=== PATIENT | female | born 1995 | race Caucasian/White ===

== ENCOUNTER 2016-09-02 14:30 | Outpatient (CLI) | payer MEDICAID | END 2016-09-02 14:31 | disposition home or self-care (01) | DX: Z34.83 Encounter for supervision of other normal pregnancy, third trimester (principal) ==

== ENCOUNTER 2016-09-12 18:29 | Outpatient (CLI) | payer MEDICAID | END 2016-09-12 20:05 | disposition home or self-care (01) | DX: Z34.03 Encounter for supervision of normal first pregnancy, third trimester (principal) ==

== ENCOUNTER 2016-09-17 11:22 | Outpatient (CLI) | payer MEDICAID | END 2016-09-17 11:23 | disposition home or self-care (01) | DX: O36.63X0 Maternal care for excessive fetal growth, third trimester, not applicable or unspecified (principal); Z3A.00 Weeks of gestation of pregnancy not specified ==

== ENCOUNTER 2016-09-26 | Outpatient (CLI) | payer MEDICAID | END 2016-09-27 02:55 | disposition home or self-care (01) ==

== ENCOUNTER 2016-09-27 16:31 | Inpatient (IN) | payer MEDICAID ==
[2016-09-27] MEDS ORDERED: fentaNYL 100 MCG/2 ML VIAL IVP PRN (17:44)
[2016-09-27] MEDS ORDERED: LACTATED RINGERS 1,000 ML IV SCH (18:00)
[2016-09-27] MEDS ORDERED: ACETAMINOPHEN 325 MG TABLET PO SCH (18:00)
[2016-09-27] MEDS ORDERED: fentaNYL 100 MCG/2 ML VIAL ONE (18:28)
[2016-09-27] MEDS: LACTATED RINGERS 1,000 ML IV SCH ×2 (18:45→20:33)
[2016-09-27] MEDS: fentaNYL 100 MCG/2 ML VIAL IVP PRN ×2 (18:58→20:00)
[2016-09-27] MEDS ORDERED: SUFENTA/BUPIV 0.4 MCG/0.0625% 150 ML EP ONE (20:03)
[2016-09-27] MEDS ORDERED: ROPIVACAINE 0.2% PF 10 ML VIAL EPI ONE (20:40)
[2016-09-27] MEDS ORDERED: OXYTOCIN/LACTATED RINGERS 250 ML IV SCH (23:00)
[2016-09-27] MEDS ORDERED: LIDOCAINE 1% 50 ML MDV ONE (23:50)
[2016-09-28] MEDS ORDERED: miSOPROStol 100 MCG TABLET ONE (01:29)
[2016-09-28] MEDS ORDERED: OXYTOCIN 10 UNIT/ML VIAL ONE (02:45)
[2016-09-28] MEDS ORDERED: HYDROcod/ACETAM 5/325 MG TABLET PO PRN (03:28)
[2016-09-28] MEDS ORDERED: HYDROCORTISONE/PRAMOXINE 10 GM PR PRN (03:28)
[2016-09-28] MEDS ORDERED: SIMETHICONE CHEW 80 MG TABLET PO PRN (03:28)
[2016-09-28] MEDS ORDERED: HYDROCORTISONE 1% CREAM 28 GM TUBE PR PRN (03:28)
[2016-09-28] MEDS ORDERED: WITCH HAZEL/GLYCERIN 1 EACH MED..PAD TOP PRN (03:28)
[2016-09-28] MEDS ORDERED: MAGNESIUM HYDROXIDE 2,400 MG/30 ML UDC PO PRN (03:28)
[2016-09-28] MEDS ORDERED: OXYTOCIN/LACTATED RINGERS 250 ML IV ONE (03:28)
[2016-09-28] MEDS: IBUPROFEN 800 MG TABLET PO SCH ×4 (04:10→21:42)
[2016-09-28] MEDS: ACETAMINOPHEN 325 MG TABLET PO SCH ×5 (07:20→21:42)
[2016-09-28] MEDS: DOCUSATE SODIUM 100 MG CAPSULE PO SCH ×2 (09:39→21:42)
[2016-09-28] MEDS ORDERED: ceFAZolin 2 GM in SODIUM CHLORIDE 0.9% MINIBAG 100 ML IV SCH ×2 (12:00→19:00)
[2016-09-29] MEDS: ACETAMINOPHEN 325 MG TABLET PO SCH ×3 (06:11→17:57)
[2016-09-29] MEDS: IBUPROFEN 800 MG TABLET PO SCH ×3 (06:11→17:57)
[2016-09-29] MEDS: DOCUSATE SODIUM 100 MG CAPSULE PO SCH ×2 (11:32→20:06)
[2016-09-30] MEDS: IBUPROFEN 800 MG TABLET PO SCH ×3 (00:13→12:58)
[2016-09-30] MEDS: ACETAMINOPHEN 325 MG TABLET PO SCH ×3 (00:14→12:58)
[2016-09-30] MEDS: DOCUSATE SODIUM 100 MG CAPSULE PO SCH (12:58)
== END 2016-09-30 13:45 | disposition home or self-care (01) | DRG 775 ==
PROC: 10D07Z6 Extraction of Products of Conception, Vacuum, Via Natural or Artificial Opening (ICD-10-PCS; principal; 2016-09-28)
PROC: 0KQM0ZZ Repair Perineum Muscle, Open Approach (ICD-10-PCS; principal; 2016-09-28)
DX: O42.02 Full-term premature rupture of membranes, onset of labor within 24 hours of rupture (principal); O60.03 Preterm labor without delivery, third trimester; Z68.41 Body mass index [BMI] 40.0-44.9, adult; O76 Abnormality in fetal heart rate and rhythm complicating labor and delivery; O66.0 Obstructed labor due to shoulder dystocia; O77.0 Labor and delivery complicated by meconium in amniotic fluid; O69.1XX0 Labor and delivery complicated by cord around neck, with compression, not applicable or unspecified; O70.1 Second degree perineal laceration during delivery; O99.214 Obesity complicating childbirth; Z87.898 Personal history of other specified conditions; Z3A.39 39 weeks gestation of pregnancy; Z37.0 Single live birth

== ENCOUNTER 2018-09-09 07:19 | Outpatient (CLI) | payer MEDICAID, OTHER ==
--- NOTE | 2018-09-09 09:30 | Ultrasound Report ---
Reason: TEST POSITIVE Procedure Date: 09/09/2018 Accession Number: [id number] / [id number] Procedure: US - OB First Trimester CPT Code: FULL RESULT: EXAM: FIRST TRIMESTER OBSTETRIC ULTRASOUND (Less than 11 weeks) EXAM DATE: 09/09/2018 08:30 AM. CLINICAL HISTORY: TEST POSITIVE. LMP: 07/15/2018. COMPARISONS: None. TECHNIQUE: Transabdominal and transvaginal ultrasound examination with static image documentation. CLINICAL DATES: EGA 8 weeks 0 days with LEONIE 04/21/2019 based on LMP. ASSESSMENT: Gestational Sac: Single intrauterine. Mean gestational sac diameter: 24.7 mm = 7 weeks 1 day. Embryo: CRL (crown-rump length) 7.9 mm = 6 weeks 5 days. Cardiac activity: 126 beats per minute. Yolk sac: 4.0 mm. Amniotic fluid: Not accurately assessed at this gestational age. Early placenta: Not visible at this gestational age. Other: No perigestational fluid collection demonstrated. MATERNAL STRUCTURES: Uterus: Anteverted. Unremarkable. Cervix: Closed. Right Ovary/Adnexa: The ovary measures 2.9 x 1.4 x 2.0 cm, volume 4.24 cc. Unremarkable. Left Ovary/Adnexa: The ovary measures 4.7 x 2.3 x 2.4 cm, volume 13.5 cc. Unremarkable. Free Fluid: None. Other: None. IMPRESSION: 1. Single viable intrauterine at EGA 6 weeks 5 days with LEONIE 04/30/2019 based on crown-rump length. RADIA
== END 2018-09-09 07:20 | disposition home or self-care (01) ==
LOC: DI 07:19
PROVIDERS: ATTEND Obstetrics & Gynecology
DX: Z32.01 Encounter for pregnancy test, result positive (principal)
CPT/HCPCS: 76801

== ENCOUNTER 2018-09-24 10:31 | Outpatient (CLI) | payer OTHER ==
[2018-09-24 17:01] LABS: MUDS CUTOFF CONCENTRATIONS CUTOFF CONC BELOW:
[2018-09-24 17:32] LABS: AMPHETAMINE SCREEN,URINE NEGATIVE (NEGATIVE); BENZODIAZEPINES SCREEN, URINE NEGATIVE (NEGATIVE); COCAINE SCREEN URINE NEGATIVE (NEGATIVE); METHADONE SCREEN, URINE NEGATIVE (NEGATIVE); METHAMPHETAMINES SCREEN, URINE NEGATIVE (NEGATIVE); OPIATE SCREEN, URINE NEGATIVE (NEGATIVE); OXYCODONE SCREEN, URINE NEGATIVE (NEGATIVE); PROPOXYPHENE SCREEN, URINE NEGATIVE (NEGATIVE); TRICYCLIC ANTIDEPRESSANT,URINE NEGATIVE (NEGATIVE)
== END 2018-09-24 10:32 | disposition home or self-care (01) ==
LOC: LAB.R 10:31
PROVIDERS: ATTEND Obstetrics & Gynecology
DX: Z33.1 Pregnant state, incidental (principal)
CPT/HCPCS: 80306; 87491; 87591

== ENCOUNTER 2020-09-12 20:26 | Emergency (ER) | payer MEDICAID, OTHER ==
[2020-09-12 20:34] VITALS: BP 141/109
[2020-09-12] MEDS ORDERED: CLINDAMYCIN 150 MG CAPSULE PO STA (21:52)
--- NOTE | 2020-09-12 21:53 | ED Physician Documentation ---
History of Present Illness - Stated complaint Stated Complaint: NECK SWELLING - Chief complaint Chief Complaint: Heent - History obtained from History obtained from: Patient - History of Present Illness Timing: How many days ago (2) Pain level max: 3 Pain level now: 2 - Additonal information Additional information: 25-year-old female presents to the emergency department stating that she noticed a swelling to the anterior aspect of her neck yesterday, states it has continued today. Nothing makes it better or worse. No fever. No sore throat. No cough. No congestion. No skin changes. 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 - Present Medications Home Medications: Ambulatory Orders Medication Instructions Recorded Confirmed clindamycin HCL [Cleocin HCl] 300 mg PO Q6H #40 cap 09/12/20 - Allergies Allergies/Adverse Reactions: Allergies Allergy/AdvReac Type Severity Reaction Status Date / Time Penicillins Allergy Hives Verified 09/12/20 20:33 - Social History Does the pt smoke?: No Smoking Status: Never smoker Does the pt drink ETOH?: Yes Does the pt have substance abuse?: No - Immunizations Immunizations are current?: Yes - POLST Patient has POLST: No PD ED PE NORMAL - Vitals Vital signs reviewed: Yes - General General: Alert and oriented X 3, No acute distress - HEENT HEENT: Ears normal, Moist mucous membranes, Pharynx benign - Neck Neck: Supple, no meningeal sign - Cardiac Cardiac: RRR - Respiratory Respiratory: No respiratory distress, Clear bilaterally - Derm Derm: Warm and dry - Neuro Neuro: Alert and oriented X 3 - Psych Psych: Normal mood, Normal affect PD ED PE EXPANDED - HEENT HEENT Visual: 1 - tenderness (Small palpable nodule, mobile. No skin changes) Results - Vitals Vitals: Vital Signs - 24 hr 09/12/20 20:29 Temperature 36.5 C Heart Rate 99 Respiratory 16 Rate Blood Pressure 141/109 H O2 Saturation 100 Oxygen O2 Source Room air - Rads (name of study) neck US Radiology: Prelim report reviewed, EMP read contemporaneously, See rad report PD MEDICAL DECISION MAKING - ED course Complexity details: reviewed results, re-evaluated patient, considered differential, d/w patient ED course: Patient appears to be feeling lymph nodes in this area. She is slightly tender, we will trial her on antibiotics and have her follow-up with her doctor to ensure that these resolved. Patient counseled regarding signs and symptoms for which I believe and urgent re-evaluation would be necessary. Patient with good understanding of and agreement to plan and is comfortable going home at this time This document was made in part using voice recognition software. While efforts are made to proofread this document, sound alike and grammatical errors may occ ur. IMPRESSION: A mass lesion is not seen, a cystic structure within the neck in the area of current clinical concern is not found. 3 small nodes are seen in this area, normal in appearance. Departure - Departure Disposition: 01 Home, Self Care Clinical Impression: Lymphadenitis Condition: Good Instructions: ED Cervical Adenitis Abx Tx Follow-Up: your,doctor in 1 week [Other] Prescriptions: clindamycin HCL [Cleocin HCl] 300 mg PO Q6H #40 cap Comments: Take all antibiotics until gone. Return if you worsen. This may take 1 to 2 weeks to fully resolve. It is important to be reevaluated by your doctor after completion of antibiotics to ensure resolution. Discharge Date/Time: 09/12/20 22:54
--- NOTE | 2020-09-13 08:22 | Ultrasound Report ---
PROCEDURE: Head or Neck Soft Tissue INDICATIONS: ant neck swelling, poss thyroglossal duct cyst? TECHNIQUE: Real time scanning was performed of the neck region of interest, with image documentation . COMPARISON: None. FINDINGS: No soft tissue neck abnormality seen bilaterally that would suggest presence of thyrogloss al duct cyst. 3 small adjacent lymph nodes are noted measuring less than 1 cm in maximal dimension, w ith normal-appearing morphology. IMPRESSION: A mass lesion is not seen, a cystic structure within the neck in the area of current clin ical concern is not found. 3 small nodes are seen in this area, normal in appearance. Reviewed by: Evan Alexander MD on 09/13/2020 8:21 AM PST Approved by: Evan Alexander MD on 09/13/2020 8:21 AM PST Station ID: [id number]
== END 2020-09-12 22:54 | disposition home or self-care (01) ==
LOC: ED 20:26
DX: I88.9 Nonspecific lymphadenitis, unspecified (principal)
CPT/HCPCS: 76536; 99284; A9270

== ENCOUNTER 2021-02-26 18:25 | Emergency (ER) | payer MEDICAID ==
--- NOTE | 2021-02-26 21:12 | ED Physician Documentation ---
History of Present Illness - Stated complaint Stated Complaint: HIT BELLY W/ CAR DOOR - Chief complaint Chief Complaint: Abd Pain - History obtained from History obtained from: Patient - Additonal information Additional information: 25-year-old woman, currently with LMP December 08 lower abdominal pain [place] Denies contraction-like pain, vaginal bleeding, urinary symptoms or injury. Review of Systems GI: reports: Abdominal Pain, Nausea. 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 - Present Medications Home Medications: Ambulatory Orders Medication Instructions Recorded Confirmed clindamycin HCL [Cleocin HCl] 300 mg PO Q6H #40 cap 09/12/20 - Allergies Allergies/Adverse Reactions: Allergies Allergy/AdvReac Type Severity Reaction Status Date / Time Penicillins Allergy Hives Verified 02/26/21 18:28 - Social History Does the pt smoke?: No Smoking Status: Never smoker Does the pt drink ETOH?: Yes Does the pt have substance abuse?: No - Immunizations Immunizations are current?: Yes - POLST Patient has POLST: No PD ED PE NORMAL - Vitals Vital signs reviewed: Yes - General General: Alert and oriented X 3, No acute distress, Well developed/nourished - HEENT HEENT: Atraumatic, PERRL, EOMI - Neck Neck: Supple, no meningeal sign - Abdomen Abdomen: Non tender, Non distended, Other (gravid uterus) - Back Back: No CVA TTP - Derm Derm: Normal color - Extremities Extremities: No deformity - Neuro Neuro: Alert and oriented X 3 - Psych Psych: Normal mood, Normal affect Results - Vitals Vitals: Vital Signs - 24 hr 02/26/21 18:28 Temperature 36.8 C Heart Rate 83 Respiratory 16 Rate Blood Pressure 140/90 H O2 Saturation 99 Oxygen O2 Source Room air Procedures - General procedure General procedure: [id number] ultrasound with positive movement, heart rate measured at 174. PD MEDICAL DECISION MAKING - ED course ED course: 25yF presented for medical evaluation of her after experiencing mild lower abd pain. FHR 174. patient reassured. return precautions given. she has appt with OB friday. Departure - Departure Disposition: Home, Self Care Clinical Impression: Encounter for medical screening examination, Condition: Good Instructions: Care Comments: You are seen in the emergency department for evaluation of your abdomen. Your baby is moving in the uterus, has a normal heart rate of 174, and you appear to have no other abnormalities. Please return to the emergency department if you experience vaginal bleeding, worsening pain, fevers, urinary symptoms like burning when you pee or blood in your pee or if you have any other concerns. Follow-up with your COMPENSATION/BENEFITS SPECIALIST.
[2021-02-26 21:18] VITALS: BP 130/88
== END 2021-02-26 21:17 | disposition home or self-care (01) ==
LOC: ED 18:25
DX: O99.891 Other specified diseases and conditions complicating pregnancy (principal); R10.30 Lower abdominal pain, unspecified; R11.0 Nausea; O10.919 Unspecified pre-existing hypertension complicating pregnancy, unspecified trimester; Z3A.00 Weeks of gestation of pregnancy not specified
CPT/HCPCS: 99281

== ENCOUNTER 2023-01-13 19:13 | Emergency (ER) | payer MEDICAID ==
[2023-01-13] MEDS ORDERED: MUPIROCIN 2% OINT 1 GM TOP STA (19:41)
--- NOTE | 2023-01-13 19:43 | ED Physician Documentation ---
PD HPI ABD PAIN - Stated complaint Stated Complaint: RECTAL PX - Chief complaint Chief Complaint: Abd Pain - History obtained from History obtained from: Patient - History of Present Illness Timing - onset: How many weeks ago (1) Timing - duration: Weeks (1) Timing - details: Gradual onset, Still present Quality: Sharp, Pain Location: Periumbilical Improved by: Other (nothing) Worsened by: Palpation Associated symptoms: No: Fever, Nausea, Vomiting, Hematemesis, Diarrhea, Constipation, Melena, Hematochezia, Dysuria, Hematuria, Chest pain, Loss of appetite Similar symptoms before: Has not had sx before Recently seen: Not recently seen - Additional information Additional information: 27-year-old Radha Williamson is developed a periumbilical hernia and she has been in to see the surgeon about this and is not covered by her [facility] [facility] insurance. She has now developed some protrusion of the umbilicus into the umbilical canal and has developed an infection with a foul smell to it. She has some drainage from her umbilicus and some redness and a bit of tenderness. She has had symptoms for about a week. They are not improving. She has not had visceral symptoms. Review of Systems Constitutional: denies: Fever Eyes: denies: Decreased vision Nose: denies: Congestion Throat: denies: Sore throat Respiratory: denies: Cough GI: reports: Abdominal Pain. 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 - Present Medications Home Medications: Ambulatory Orders Medication Instructions Recorded Confirmed clindamycin HCL [Cleocin HCl] 300 mg PO Q6H #40 cap 09/12/20 Mupirocin 2% Oint [Bactroban 2% 1 applic TOP BID #22 gm 01/13/23 Oint] - Allergies Allergies/Adverse Reactions: Allergies Allergy/AdvReac Type Severity Reaction Status Date / Time Penicillins Allergy Hives Verified 01/13/23 19:24 - Social History Does the pt smoke?: No Smoking Status: Never smoker Does the pt drink ETOH?: Yes Does the pt have substance abuse?: No - Immunizations Immunizations are current?: Yes - POLST Patient has POLST: No PD ED PE NORMAL - Vitals Vital signs reviewed: Yes (hypertensive ) - General General: Alert and oriented X 3, No acute distress, Well developed/nourished - HEENT HEENT: Atraumatic, PERRL, EOMI - Respiratory Respiratory: No respiratory distress - Abdomen Abdomen: Normal bowel sounds, Soft, Non distended, No organomegaly, Other (There is a periumbilical defect in the fascia superior to the umbilicus and this causes the skin to the superior portion of the umbilicus to obstruct the drainage of the umbilicus. Behind this there is erythema tenderness and drainage with a foul smell. 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, No motor deficit, No sensory deficit, Normal speech Eye Opening: Spontaneous Motor: Obeys Commands Verbal: Oriented GCS Score: 15 - Psych Psych: Normal mood, Normal affect Results - Vitals Vitals: Vital Signs - 24 hr 01/13/23 19:21 Temperature 36.3 C L Heart Rate 76 Respiratory 16 Rate Blood Pressure 146/95 H O2 Saturation 100 Oxygen O2 Source Room air PD Medical Decision Making - ED course Complexity details: considered differential, d/w patient ED course: 27-year-old female with an umbilical hernia that is now cause some obstruction to the normal drainage of her deep umbilicus and there is evidence of superficial infection. We will instill some mupirocin and I have asked the patient to use the mupirocin as well as an antifungal. We did do a culture of the deep umbilical pocket Departure - Departure Disposition: 01 Home, Self Care Clinical Impression: Umbilical discharge Condition: Stable Instructions: ED Infec Skin Cellulitis Follow-Up: Your, doctor [Other] Prescriptions: Mupirocin 2% Oint [Bactroban 2% Oint] 1 applic TOP BID #22 gm Comments: Radha today it looks like there is some superficial infection to your umbilicus. We have instilled some mupirocin. My recommendation is to use the mupirocin twice per day applied with a q-tip to the deep recess of the umbilicus. In addition use Monistat applied with a Q-tip twice per day. Monistat is available [id number]. The mupirocin has been E scribed to the [facility] [place]. A culture of the umbilicus is pending and a follow-up with your [facility] care doctor is indicated if you do not have complete resolution of your symptoms with this simple treatment.
[2023-01-13 20:05] VITALS: BP 146/99
== END 2023-01-13 20:04 | disposition home or self-care (01) ==
LOC: ED 19:13
DX: L08.82 Omphalitis not of newborn (principal); K42.9 Umbilical hernia without obstruction or gangrene
CPT/HCPCS: 87070; 87077; 87205; 99282; 99283; A9270

== ENCOUNTER 2024-10-21 08:49 | Inpatient (IN) ==
[2024-10-21 11:05] LABS: BASOPHILS % (AUTO) 0.2 %; HCT - HEMATOCRIT 44.8 % (37.0-47.0); HGB - HEMOGLOBIN 14.2 g/dL (12.0-16.0); LYMPHOCYTES # (AUTO) 1.1 10^3/uL (1.5-3.5); LYMPHOCYTES % (AUTO) 6.5 %; MEAN CORPUSCULAR HEMOGLOBIN 26.6 pg (27.0-31.0); MEAN CORPUSCULAR HGB CONC 31.7 g/dL (32.0-36.0); MEAN CORPUSCULAR VOLUME 84.1 fL (81.0-99.0); MEAN PLATELET VOLUME 10.8 fL (7.9-10.8); MONOCYTES # (AUTO) 0.4 10^3/uL (0.0-1.0); MONOCYTES % (AUTO) 2.2 %; NEUTROPHILS # (AUTO) 14.8 10^3/uL (1.5-6.6); NEUTROPHILS % (AUTO) 90.8 %; PLT - PLATELET COUNT 348 10^3/uL (130-450); RED BLOOD COUNT 5.33 10^6/uL (4.20-5.40); RED CELL DISTRIBUTION WIDTH 13.9 % (12.0-15.0); WHITE BLOOD COUNT 16.3 x10^3/uL (4.8-10.8)
[2024-10-21 11:20] LABS: ALBUMIN 4.9 g/dL (3.2-5.5); ALBUMIN/GLOBULIN RATIO 1.5 (1.0-2.2); BILIRUBIN,TOTAL 0.6 mg/dL (0.2-1.0); CALCIUM 9.9 mg/dL (8.5-10.3); CREATININE 0.6 mg/dL (0.6-1.3); POTASSIUM 4.2 mmol/L (3.5-4.5); TOTAL PROTEIN 8.2 g/dL (6.4-8.9)
[2024-10-21] MEDS ORDERED: iohexoL-300 100 ML VIAL ONE (11:49)
[2024-10-21 11:51] LABS: BILIRUBIN,URINE SMALL (NEGATIVE); CLARITY,URINE CLEAR (CLEAR); GLUCOSE, URINE (UA) NEGATIVE (NEGATIVE); KETONES,URINE (UA) >=80 mg/dL (NEGATIVE); LEUKOCYTE ESTERASE, URINE NEGATIVE (NEGATIVE); NITRITE,URINE NEGATIVE (NEGATIVE); OCCULT BLOOD,URINE NEGATIVE (NEGATIVE); PROTEIN,URINE 100 mg/dL (NEGATIVE); UROBILINOGEN,URINE 0.2 (NORMAL) E.U./dL (NORMAL)
[2024-10-21 11:53] LABS: HCG UR QUAL NEGATIVE
[2024-10-21] MEDS: MORPHINE 10 MG/ML VIAL IVP STA (12:04)
[2024-10-21] MEDS: ONDANSETRON 4 MG/2 ML VIAL IVP STA (12:04)
[2024-10-21 12:10] LABS: WBC,URINE 0-3 /HPF (0-5)
[2024-10-21 12:11] LABS: BACTERIA,URINE Few /HPF (None Seen); MUCUS,URINE Few Strands; RBC,URINE 0-5 /HPF (0-5); SQUAMOUS EPITHELIAL CELL,UR MOD Squamous (<= Few)
--- NOTE | 2024-10-21 12:20 | CT Report ---
PROCEDURE: CT Abdomen/Pelvis W INDICATIONS: Abdominal pain, acute, nonlocalized CONTRAST: Omni 300 100ml TECHNIQUE: After the administration of intravenous contrast, a CT scan of the abdomen and pelvis was performed. Images were recorded and evaluated at appropriate window settings. Reformats: coronal and sagittal. F or radiation dose reduction, the following was used: automated exposure control, adjustment of mA and /or kV according to patient size. COMPARISON: None. FINDINGS: Image quality: Diagnostic. Lower chest: Mild bibasilar dependent atelectasis posteriorly. Heart size is normal, no pericardial e ffusion. Liver: No solid mass. Gallbladder: No radiopaque stones or wall thickening. Biliary tree: No intrahepatic or extrahepatic dilation, accounting for age. Spleen: No splenomegaly. Pancreas: No pancreatic ductal dilation. Adrenals: No adrenal nodule. Kidneys and ureters: No hydronephrosis. No renal cystic lesion which requires follow up. No solid mas s. Stomach, bowel and peritoneum: There is mild fluid distention of small bowel loops extending to dista l small bowel loops at the level of periumbilical herniation sac with decompressed bowel loops exitin g the herniation sac. The compressed terminal ileum is seen. Mild bowel wall thickening involving sma ll bowel loops within the herniation sac is noted. No other area of abnormal bowel wall thickening. N o pathologic free fluid. Likely physiologic free fluid in lower pelvis is seen. No peritoneal free ai r. Lymph nodes: No central or retroperitoneal adenopathy. Vessels: No infrarenal aortic aneurysm. Patent portal vein. PELVIS Reproductive organs: Unremarkable. Bladder: No abnormal wall thickening. Pelvic lymph nodes: No pelvic adenopathy by size criteria. Bones: No aggressive osseous abnormality. Other: Moderate sized periumbilical hernia containing a short segment of small bowel loop with mild s tranding of mesenteric fat within herniation sac. No significant inguinal hernia is seen. IMPRESSION: 1. Finding is concerning for incarcerated periumbilical hernia with moderate grade distal small bowel obstruction proximal to the herniation sac. No other area of abnormal bowel wall thickening. No absc ess collection. No peritoneal free air. Likely physiologic amount of free fluid in lower pelvis. 2. No obstructing renal stones or hydronephrosis. Reviewed by: Raf Loredo MD on 10/21/2024 12:18 PM PDT Approved by: Raf Loredo MD on 10/21/2024 12:18 PM PDT Station ID: [id number]
[2024-10-21] MEDS: iohexoL-300 100 ML VIAL IVP ONE (12:24)
--- NOTE | 2024-10-21 12:40 | ED Physician Documentation ---
History of Present Illness Stated complaint Stated Complaint: ABD PX Chief complaint Chief Complaint: Abd Pain Additonal information Additional information: 29-year-old presents with abdominal pain. Known history of periumbilical hernia this been present for 2 years. States had episode of pain and had hernia reduced in urgent care 2 weeks ago. Has been unable to reduce the hernia since approximately 8:00 yesterday evening. Associated with nausea without vomiting. Is not passing gas or stool. Reports pain but denies fever, chills, chest pain, shortness of breath. Elisabet Coma Scale Assess Eye opening: Spontaneous Verbal response: Oriented Motor response: Obeys Commands Total score: 15 Review of Systems Status of ROS: 10 or more systems reviewed and unremarkable except as noted in history and below Gastrointestinal Reports: Abdominal pain and Nausea; Denies: Vomiting or Diarrhea Meds/Allgy Home Medications Ambulatory Orders Medication Instructions Recorded Confirmed acetaminophen 500 mg tablet 1,000 mg PO Q6H PRN fever or pain 10/22/24 10/22/24 Allergies Allergies Allergy/AdvReac Type Severity Reaction Status Date / Time Penicillins Allergy Hives Verified 10/21/24 09:01 [facility] Medical History Medical History (Updated 10/24/24 @ 00:00 by ) Umbilical hernia Surgical History Surgical History (Updated 10/22/24 @ 08:06 by Alvin Ferreira MD) H/O ventral hernia repair required small bowel resection Hx of section x3 Social History Social History (Updated 10/21/24 @ 12:55 by Alvin Ferreira MD) Smoking Status: Never smoker Do you dip or chew tobacco?: No Do you vape?: No Living arrangement: At home Relationship: Level: Independent Do you feel safe in your home environment?: Yes Suffered physical, verbal, emotional, or financial abuse?: No History of Abuse: No Frequency: Occasional Substance Use: denies use 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 Diminished bowel sounds throughout. Genitourinary no CVA tenderness Extremities normal to inspection Neurology nutrient management specialist II-XII intact, no movement abnormality noted, no focal motor deficit noted and no sensory deficits noted Psychiatry mental status grossly normal Skin skin color normal Results Vitals Vitals: Oxygen O2 Source Room air Labs Labs: Laboratory Tests 10/21/24 10/21/24 11:00 11:41 WBC 16.3 H RBC 5.33 Hgb 14.2 Hct 44.8 MCV 84.1 MCH 26.6 L MCHC 31.7 L RDW 13.9 Plt Count 348 MPV 10.8 Neut # (Auto) 14.8 H Lymph # (Auto) 1.1 L [place] # (Auto) 0.4 Eos # (Auto) 0.0 Baso # (Auto) 0.0 Absolute Nucleated RBC 0.00 Nucleated RBC % 0.0 Sodium 137 Potassium 4.2 Chloride 103 Carbon Dioxide 25 Anion Gap 9.0 BUN 12 Creatinine 0.6 Estimated GFR (MDRD) 119 Glucose 121 H Lactic Acid 0.8 Calcium 9.9 Total Bilirubin 0.6 AST 17 ALT 14 Alkaline Phosphatase 78 Total Protein 8.2 Albumin 4.9 Globulin 3.3 Albumin/Globulin Ratio 1.5 Lipase 10 L Urine Color DARK YELLOW Urine Clarity CLEAR Urine pH 6.0 Ur Specific [place] >=1.030 H Urine Protein 100 H Urine Glucose (UA) NEGATIVE Urine Ketones >=80 H Urine Occult Blood NEGATIVE Urine Nitrite NEGATIVE Urine Bilirubin SMALL H Urine Urobilinogen 0.2 (NORMAL) Ur Leukocyte Esterase NEGATIVE Urine RBC 0-5 Urine WBC 0-3 Ur Squamous Epith Cells MOD Squamous H Urine Bacteria Few Urine Mucus Few Strands Ur Microscopic Review INDICATED Urine Culture Comments NOT INDICATED Urine HCG, Qual NEGATIVE PD Medical Decision Making ED course Complexity details: reviewed results, considered differential, d/w patient and d/w eligibility consultant ED course: 29-year-old presents with abdominal pain.Has what appears to be irreducible periumbilical hernia. Elevated white blood cell count noted here and lab work. CT abdomen pelvis demonstrates findings concerning for strangulation/incarceration. Discussed with general surgery, Dr. Ferreira who evaluates patient and will take to the operating room. Discharge Plan Discharge Patient Disposition: 66 [facility] DC/Xfer Condition: Good Clinical Impression: Incarcerated hernia of abdominal cavity Interventions: ED Admission Assessment Last Done: 10/21/24 13:47
--- NOTE | 2024-10-21 12:59 | PREOP HISTORY & PHYSICAL ---
Surgical History & Physical Chief Complaint/HPI Chief Complaint: My hernia is back, and now I'm throwing up History of Present Illness: This is a 29-year-old female who presents with a ventral hernia that been present for about 2 years. The hernia had been easily reducible until earlier this week. The hernia became incarcerated on Friday and the patient was seen at a walk-in clinic where the hernia was reduced with great effort. Then on Friday, the hernia became incarcerated again. Overnight, the patient had obstructive symptoms with nausea and vomiting. Due to the persistence of her symptoms, she came to the emergency department today. The emergency department provider attempted to reduce the hernia and ordered a CT which shows incarcerated small bowel. For an incarcerated ventral hernia, I am being consulted and asked to see the patient. 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 She also has several children, the youngest of which is 8 months old. The patient endorses a history of 3 prior C-sections and no other prior surgeries. She denies any other medical problems. She would very much like to have her hernia fixed today. Last PO was at approximately 2000 last night. Home Meds and Allergies No Known Home Medications 10/21/24 Allergies Allergy/AdvReac Type Severity Reaction Status Date / Time Penicillins Allergy Hives Verified 10/21/24 09:01 Vital Signs O2 Saturation: 96 Patient Review Patient Review Pertinent Tests Reviewed [facility] Medical History Medical History (Updated 10/21/24 @ 12:40 by Manuel Gallo MD) Umbilical hernia Surgical History Surgical History (Updated 10/21/24 @ 12:54 by Alvin Ferreira MD) Hx of section x3 Social History Social History (Updated 10/21/24 @ 12:55 by Alvin Ferreira MD) Smoking Status: Never smoker Do you dip or chew tobacco?: No Do you vape?: No Living arrangement: At home Relationship: Level: Independent Do you feel safe in your home environment?: Yes Suffered physical, verbal, emotional, or financial abuse?: No History of Abuse: No Frequency: Occasional Substance Use: denies use Occupation: Works at a pet store, lots of heavy lifting 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 Greatest diameter is approximately 3 cm. The remainder of her abdomen is non tender, no rebound or guarding CIRCULATORY: no clubbing, cyanosis, or edema SKIN: no lesions appreciated LYMPH: no obvious lymphadenopathy MSK: 4/4 strength in all extremities PSYCH: Affect is appropriate Image I personally interpreted the images from and reviewed the report from the patient's CT scan of her abdomen and pelvis performed earlier today. It is consistent with an incarcerated obstructing ventral hernia. There is no free air or significant free fluid. Review of Systems Status of ROS: 10 or more systems reviewed and unremarkable except as noted in history and below Assessment & Plan Assessment & Plan Assessment & Plan: This is a 29-year-old female with: 1. Incarcerated ventral hernia The patient's ventral hernia is incarcerated. I attempted to reduce it emergency department without success. Other providers have also attempted to reduce the hernia today without success. This is the second time in several days of the hernia has become incarcerated. Due to his present incarceration and risk for recurrent incarceration, I recommend open ventral hernia repair with mesh. Because the hernia is incarcerated there is a risk that the bowel is strangulated. If the bowel is not viable and will need to be resected. If the bowel appeals appears healthy, I would proceed with a preperitoneal mesh repair. If bowel resection is required, I would perform a primary ventral hernia repair without mesh. I discussed the risks, benefits, and alternatives of surgery with the patient. These risks include but are not limited to bleeding, infection, damage to surrounding structures, recurrence of the hernia, and infection of the mesh if mesh is placed. The patient voiced understanding, her questions were answered, and she wished to proceed. A consent was signed by the patient in the emergency department today. I am currently placing the patient in outpatient surgery status. If she requires a bowel resection, she will be admitted to the hospital until she has return of bowel function. -Preoperative antibiotics have been ordered. Due to the patient's nausea, ERAS protocol will not be followed.
[2024-10-21] MEDS ORDERED: ROCURONIUM 50 MG/5 ML VIAL ONE ×2 (13:19→14:59)
[2024-10-21] MEDS ORDERED: MIDAZOLAM 2 MG/2 ML VIAL ONE (13:19)
[2024-10-21] MEDS ORDERED: PROPOFOL 200 MG/20 ML VIAL IVP ONE (13:19)
[2024-10-21] MEDS ORDERED: LIDOCAINE-PF 2% 10 ML AMP SUBQ ONE (13:19)
[2024-10-21] MEDS ORDERED: fentaNYL 100 MCG/2 ML VIAL ONE ×2 (13:19→15:19)
[2024-10-21] MEDS ORDERED: ONDANSETRON 4 MG/2 ML VIAL ONE (13:19)
[2024-10-21] MEDS ORDERED: DEXAMETHASONE 4 MG/ML VIAL ONE (13:19)
[2024-10-21] MEDS ORDERED: metroNIDAZOLE 500 MG/100 ML 500 MG/100 ML BAG IV SCH (13:21)
[2024-10-21] MEDS ORDERED: LIDOCAINE 1%-EPI 1:100000 20 ML MDV ONE (13:27)
[2024-10-21] MEDS ORDERED: BUPIVACAINE 0.5% PF 10 ML VIAL ONE (13:27)
--- NOTE | 2024-10-21 13:40 | ANESTHESIA PROCEDURE NOTE ---
Pre-Anesthesia VS, & Labs Diagnosis Surgical Diagnosis:: incarcerated hernia Procedure Procedure: ventral hernia repair Vitals Vital Signs: Temp Pulse Resp BP Pulse Ox 36.7 C 89 16 160/104 H 96 10/21/24 09:01 10/21/24 12:01 10/21/24 12:01 10/21/24 12:01 10/21/24 12:59 NPO NPO: >8 hours Is Patient ?: No Lab Results Current Lab Results: Laboratory Tests 10/21/24 11:00: WBC 16.3 H, RBC 5.33, Hgb 14.2, Hct 44.8, MCV 84.1, MCH 26.6 L, MCHC 31.7 L, RDW 13.9, Plt Count 348, MPV 10.8, Neut # (Auto) 14.8 H, Lymph # (Auto) 1.1 L, [place] # (Auto) 0.4, Eos # (Auto) 0.0, Baso # (Auto) 0.0, Absolute Nucleated RBC 0.00, Nucleated RBC % 0.0, Sodium 137, Potassium 4.2, Chloride 103, Carbon Dioxide 25, Anion Gap 9.0, BUN 12, Creatinine 0.6, Estimated GFR (MDRD) 119, Glucose 121 H, Lactic Acid 0.8, Calcium 9.9, Total Bilirubin 0.6, AST 17, ALT 14, Alkaline Phosphatase 78, Total Protein 8.2, Albumin 4.9, Globulin 3.3, Albumin/Globulin Ratio 1.5, Lipase 10 L 10/21/24 11:00 10/21/24 11:00 Meds/Allgy Home Medications Ambulatory Orders Medication Instructions Recorded Confirmed No Known Home Medications 10/21/24 10/21/24 Allergies Allergies Allergy/AdvReac Type Severity Reaction Status Date / Time Penicillins Allergy Hives Verified 10/21/24 09:01 PFSH Active Problems All Active Problems (Updated 10/21/24 @ 12:40 by Manuel Gallo MD) Incarcerated hernia of abdominal cavity (Acute) Medical History Medical History (Updated 10/21/24 @ 12:40 by Manuel Gallo MD) Umbilical hernia Surgical History Surgical History (Updated 10/21/24 @ 12:54 by Alvin Ferreira MD) Hx of section x3 Social History Social History (Updated 10/21/24 @ 12:55 by Alvin Ferreira MD) Smoking Status: Never smoker Do you dip or chew tobacco?: No Do you vape?: No Living arrangement: At home Relationship: Level: Independent Do you feel safe in your home environment?: Yes Suffered physical, verbal, emotional, or financial abuse?: No History of Abuse: No Frequency: Occasional Substance Use: denies use 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
[2024-10-21] MEDS ORDERED: fentaNYL 100 MCG/2 ML VIAL IVP PRN (13:41)
[2024-10-21] MEDS ORDERED: ATROPINE ABBOJECT 1 MG/10 ML SYRINGE IVP PRN (13:41)
[2024-10-21] MEDS ORDERED: METOCLOPRAMIDE 10 MG/2 ML VIAL IVP PRN (13:41)
[2024-10-21] MEDS ORDERED: ePHEDrine 50 MG/ML VIAL IVP PRN (13:41)
[2024-10-21] MEDS ORDERED: MORPHINE 2 MG/ML CARPUJECT IVP PRN (13:41)
[2024-10-21] MEDS ORDERED: ONDANSETRON 4 MG/2 ML VIAL IVP PRN (13:41)
[2024-10-21] MEDS ORDERED: NALOXONE 0.4 MG/ML VIAL IVP PRN (13:41)
[2024-10-21] MEDS ORDERED: HYDROmorphone 0.5 MG/0.5 ML SYRINGE IVP PRN (13:41)
[2024-10-21] MEDS: ACETAMINOPHEN 500 MG TABLET PO PRN (13:44)
[2024-10-21] MEDS ORDERED: HYDROmorphone 1 MG/ML SYRINGE ONE (15:51)
[2024-10-21] MEDS ORDERED: SUGAMMADEX 200 MG/2 ML VIAL IVP ONE (16:09)
--- NOTE | 2024-10-21 17:31 | ANESTHESIA POST OP EVALUATION ---
Anesthesia Post Eval Post Anesthesia Eval Vitals: Last Vital Signs Temp 36.7 C 10/21/24 17:22 Pulse 98 10/21/24 17:22 Resp 15 10/21/24 17:22 BP 166/99 H 10/21/24 17:22 Pulse Ox 96 10/21/24 17:22 CV Function Including HR & BP: Stable Pain Control: Satisfactory Nausea & Vomiting: Negative Mental Status: Baseline Respiratory Status: Airway Patent Hydration Status: Satisfactory Anesthesia Complications: None
[2024-10-21] MEDS ORDERED: SODIUM CHLORIDE FLUSH 0.9% 10 ML SYRINGE IVP PRN (17:34)
[2024-10-21] MEDS ORDERED: ONDANSETRON ODT 4 MG TABLET TL PRN (17:34)
--- NOTE | 2024-10-21 17:38 | OPERATIVE REPORT ---
Operative Report General Procedure Data: Operation Date: 10/21/24 13:00 Proposed Procedures p OPEN VENTRAL HERNIA REPAIR, POSSIBLE MESH POSSIBLE BOWEL RESECTION(Not Applicable) - Alvin Ferreira MD Actual Procedures Diagnostic laparoscopy, exploratory laparotomy with small bowel resection and primary ventral hernia repair Anesthesia Type General Case Staff Anesthesia Provider: Tamara Marcelino Anesthesia Provider: Yadira Osborne Times Into Recovery: 10/21/24 16:46 Procedure Start: 10/21/24 14:49 Procedure End: 10/21/24 16:38 Time out: 10/21/24 14:48 Pre-Op Diagnosis: incarcerated ventral hernia Post Op Diagnosis: strangulated ventral hernia containing non viable small bowel Procedure Note Estimated Blood Loss (ml): 20 Output, Urine Amount (ml): 150 Pathology: 1. hernia sac 2. small bowel Indications: This is a 29-year-old female who presents with a ventral hernia that been present for about 2 years. The hernia had been easily reducible until earlier this week. The hernia became incarcerated on Friday and the patient was seen at a walk-in clinic where the hernia was reduced with great effort. Then on Friday, the hernia became incarcerated again. Overnight, the patient had obstructive symptoms with nausea and vomiting, and increasing pain. Due to the persistence of her symptoms, she came to the emergency department today. The emergency department provider attempted to reduce the hernia and ordered a CT which shows incarcerated small bowel. I saw and evaluated the patient in the emergency department. We discussed the risks, benefits, and alternatives of open ventral hernia repair with possible mesh and possible small bowel resection. Risks include but are not limited to b leeding, infection, damage to surrounding structures, infection of the mesh requiring removal of placed, and recurrence of her hernia. The patient voiced understanding, her questions were answered, and she wished to proceed. A consent was signed by the patient prior to surgery. Findings: 1. Strangulated ventral hernia 2. 10 cm segment of nonviable small bowel 3. 5 cm ventral hernia, repaired primarily due to bowel resection Complications: None Other Other Information/Narrative: The patient was brought to the operative suite and placed in the supine position. General endotracheal anesthesia was induced. Induction took a prolonged period of time the patient had a nonfunctional IV and there was great difficulty establishing new IV access. Preoperative antibiotics were given. ERAS protocol was not followed due to the patient's preoperative nausea. A preop surgical timeout was performed. Local anesthetic was injected into the skin and subcutaneous tissues along the midline in the periumbilical location. The hernia was just superior to the umbilicus. Even after induction of anesthesia, the hernia was not reducible. Next, Next, a midline incision starting approximately 2 cm above the umbilicus and extending approximately 3 cm below the umbilicus was made with a 15 blade scalpel. The incision was carried down through the skin and subcutaneous tissues to the level of the fascia using blunt and sharp dissection with electrocautery. The hernia sac was identified and isolated from the surrounding structures. The umbilical stalk was freed. The hernia sac was densely adherent to the surrounding fatty tissues especially at the level of the fascia. The hernia contained a loop of bowel which was very difficult to reduce.. The preperitoneal space was developed circumferentially. The area was inspected for hemostasis. Next, I elected to pass a 5 mm laparoscope through the hernia defect itself to evaluate the bowel that had been in the hernia. The abdomen was insufflated to 15 mmHg and the abdominal cavity was inspected. There was a loop of very hyperemic bowel. At this time, I elected to convert to open and extended the hernia cephalad approximately 3 cm to make the incision large enough to evaluate the bowel. Retractors were used to evaluate the bowel. A loop of hyperemic bowel was identified with dilated bowel proximally, decompressed bowel distally. There were 2 areas that were smaller indicating that they had been entrapped within the hernia and the bowel in the middle was very hyperemic and questionably viable. I elected to resect this bowel. Viable bowel on either end of the nonviable bowel was identified and a stapled [id number] functional end-to-end anastomosis was performed with a ELLE 75 stapler. The mesentery was divided using an impact LigaSure device. A second staple line was passed just distal to the common enterotomy to include the common enterotomy in the specimen. The specimen was passed off and labeled small bowel. Hemostasis was confirmed and the mesenteric defect was closed. The anastomosis was noted to be widely patent and hemostatic. The abdomen was irrigated with 2 L of warm normal saline. Because a small bowel resection was required, I elected to repair the hernia primarily. I closed the peritoneum with 3-0 Vicryl in a running fashion. Next, the fascia was closed with 2-0 PDS starting at the inferior and superior aspects of the incision, closing in a running fashion taking 5 mm bites and 5 mm advance his length of the incision. The 2 sutures were tied in the middle. Next, the umbilical stalk was tacked to the fascia using 2-0 PDS. The wound was irrigated with warm normal saline. Next, 3-0 Vicryl was used to reapproximate the deep dermal tissues. Finally, 4-0 Monocryl was used in a running subcuticular fashion to reapproximate the skin edges. A sterile dressing of skin glue was placed. The Mcleod catheter was removed at the end of the case. The patient was extubated in the operating room and transferred to the recovery room in stable condition. There were no complications.
[2024-10-21] MEDS: HYDROmorphone 0.5 MG/0.5 ML SYRINGE IVP PRN (17:48)
[2024-10-21] MEDS: ONDANSETRON 4 MG/2 ML VIAL IVP PRN (17:49)
[2024-10-21] MEDS: SODIUM CHLORIDE FLUSH 0.9% 10 ML SYRINGE IVP SCH (17:55)
[2024-10-21] MEDS: IBUPROFEN 600 MG TABLET PO SCH (18:39)
[2024-10-21] MEDS: ACETAMINOPHEN 325 MG TABLET PO SCH (19:13)
[2024-10-21] MEDS: LACTATED RINGERS 1,000 ML IV SCH ×2 (19:13→20:40)
[2024-10-21] MEDS: FAMOTIDINE 20 MG/2 ML VIAL IVP SCH (20:24)
[2024-10-21] MEDS: PROCHLORPERAZINE 10 MG/2 ML VIAL IVP PRN (20:35)
[2024-10-21] MEDS: ACETAMINOPHEN 1,000 MG/100 ML 1,000 MG/100 ML BAG IV ONE (20:39)
[2024-10-21] MEDS: ceFAZolin (2G) 2 GM in SODIUM CHLORIDE 0.9% MINIBAG 100 ML IV ONE (20:40)
--- NOTE | 2024-10-22 07:35 | PROVIDER PROGRESS NOTE ---
Subjective General Admit Date: 10/21/24 Procedure Date: 10/21/24 Post Op Days: 1 Procedure Performed: diag laparoscopy, ex lap, small bowel resection, primary hernia repair Other Other Information/Narrative: Pain controlled. Patient received a single dose of IV pain medication last night. Tolerating clears. Denies n/v. She has not been out of bed aside from to the restroom since surgery. Review of Systems Status of ROS: 10 or more systems reviewed and unremarkable except as noted in history and below Exam Exam GEN: NAD, alert and oriented CV: RRR PULM: Nonlabored, on room air ABD: soft, obese, with slight incisional ttp. Binder in place. No rebound or guarding CIRCULATORY: no clubbing, cyanosis, or edema Image I personally interpreted the images from and reviewed the report from the patient's CT scan of her abdomen and pelvis performed earlier today. It is consistent with an incarcerated obstructing ventral hernia. There is no free air or significant free fluid. Impression/Plan Problem List (1) Strangulated ventral hernia: Plan: s/p Diagnostic laparoscopy, exploratory laparotomy with small bowel resection, primary ventral hernia repair, POD #1 - pain controlled, transition to PO meds - adat to regular - increase activity - patient will need to follow reduced activity (no lifting/pushing/pulling more than 20 lbs) for 6wk. (2) H/O ventral hernia repair: Plan reassess this afternoon patient is doing better than expected this morning possible discharge later today if tolerating diet, PO meds for pain
[2024-10-22] MEDS: ENOXAPARIN 40 MG/0.4 ML SYRINGE SUBQ SCH (08:54)
[2024-10-22] MEDS: oxyCODONE 5 MG TABLET PO PRN (10:48)
--- NOTE | 2024-10-22 12:29 | PHARMACY PROGRESS NOTE ---
Best Possible Medication History Admit Date and Time: 10/21/24 1753 Home Medications Medication Instructions Recorded Confirmed Type acetaminophen 500 mg tablet 1,000 mg PO Q6H PRN fever or pain 10/22/24 10/22/24 History Processed by: Pharmacy Medications reviewed in ED?: No Medication History completed: Yes Patient Interview: Completed Secondary Source(s): Insurance records [facility] Statement: Per [facility] interview with patient and review of [employer] insurance records. As the person ultimately responsible for medication therapy, providers are able to order a medication from an existing home medication list in [facility] via the "Reconcile Routine" prior to Confirmation of that medication by residential support specialist. Such practice is discouraged except when the physician, in their clinical judgment, deems that a medical need exists for a medication without regard to previous use.
--- NOTE | 2024-10-22 13:59 | PROVIDER PROGRESS NOTE ---
Subjective General Admit Date: 10/21/24 Procedure Date: 10/21/24 Post Op Days: 1 Procedure Performed: diag laparoscopy, ex lap, small bowel resection, primary hernia repair Wound Assessment Wound/Incisions: positive Dressing dry and intact Review of Systems Status of ROS: 10 or more systems reviewed and unremarkable except as noted in history and below Exam Exam General: 29-year old female evaluated in room 2209 at [facility] MedSurg unit, appears stated age, well developed, well nourished, has not passed gas, feeling somewhat nauseous HEENT: Normocephalic, atraumatic, extraocular movement intact, mucous membranes pink and moist, sclera anicteric and not injected Neck: Supple without pain on palpation, mass or bruit Cardiac: Regular rate and rhythm without rub, gallop, or murmur Chest: Clear to auscultation bilaterally but coughing frequently with what sounds like upper respiratory tract sounds Abdomen: Soft, nontender, slightly decreased bowel sounds, no hepatomegaly, no splenomegaly, abdominal binder in place. Wound is clean dry and intact healing well without evidence of erythema, exudate, or ecchymosis Genitourinary: Deferred Rectal: Deferred Extremities: No gross neurovascular problem, no clubbing, cyanosis or edema Gait: No gross motor deficit Psychiatric: Alert and oriented to person place and time, asks and answers questions appropriately, mood and affect appropriate ABX Reporting Has patient been on IV antibiotics over the past 48 hours?: Yes Impression/Plan Problem List (1) Strangulated ventral hernia: (2) H/O ventral hernia repair: Plan POD 1 s/p exploratory laparotomy with resection of strangulated small bowel and ileoileostomy as well as primary closure of hernia defect 1) FEN Patient is currently receiving IV fluids and is encouraged to take p.o. fluids but the patient has not had significant return of her bowel function and is feeling somewhat nauseous so we will approach this cautiously. 2) ID No indication of infection. 3) Wound Clean dry and intact without evidence of reherniation or infection 4) Activity Patient encouraged to ambulate. Patient can shower. 5) Pathology Pending Patient is not documented or shown that she can tolerate p.o. fluids and food well enough to go home nor has she had enough bowel function return. I will wait for this to return prior to discharging her home and I expect that this will occur in the next 24 to 48 hours. This was discussed with the patient her aunt and her mother.
[2024-10-23 08:19] VITALS: BP 134/88; TEMP 98.2; O2SAT 96
--- NOTE | 2024-10-23 13:39 | Discharge Summary ---
Discharge Summary Admit Date: 10/21/24 Discharge Date: 10/23/24 Discharging Provider: Gerson Lei MD Code Status: Attempt Resuscitation DIAGNOSES Admission Diagnoses: Strangulated umbilical hernia Discharge Diagnoses with Status of Each Condition: Both resolved. HPI History of Present Illness: Patient is a 29 year old female with known umbilical hernia that had been asymptomatic for years but this week became difficult to reduce and then it incarcerated AND strangulated with evidence of bowel obstruction. Presented to ED and Dr. Ferreira took patient urgently to OR for surgery. HOSPITAL COURSE Hospital Course: Uncomplicated, but due to the need for small bowel resection the return to bowel function took [place] [address]. ALLERGIES Allergies Allergy/AdvReac Type Severity Reaction Status Date / Time Penicillins Allergy Hives Verified 10/21/24 09:01 MEDICATIONS Ambulatory Orders Medication Instructions Recorded Confirmed acetaminophen 500 mg tablet 1,000 mg PO Q6H PRN fever or pain 10/22/24 10/22/24 PHYSICAL EXAM AT DISCHARGE General Appearance: positive No acute distress Eyes Bilateral: positive Normal inspection ENT: positive ENT inspection nml Neck: positive Nml inspection, Thyroid nml and Trachea midline Respiratory: positive Chest non-tender, No respiratory distress and Breath sounds nml Cardiovascular: positive Regular rate & rhythm and No murmur Abdomen: positive No organomegaly, Nml bowel sounds and Tenderness (Incisional but minimal. Nop evidence of infection or re-herniation.) Skin: positive Color nml, No rash, Warm and Dry Extremities: positive Non-tender Neurologic/Psychiatric: positive Oriented x3, Motor nml, Sensation nml and Mood/affect nml LABS 10/21/24 11:00 10/21/24 11:00 QUALITY (Female Hip Fx Only) Was patient sent home on osteoporosis medication?: No FOLLOW UP Follow Up: With Dr. Ferreira in 7-10 days. TIME SPENT Time Spent in Discharge (Minutes): 45 Discharge Plan Discharge Patient Disposition: BRANDEN, Self Care Condition: Good Prescriptions: Continued acetaminophen 500 mg tablet 1,000 mg PO Q6H PRN (Reason: fever or pain) Activity Restrictions: See below. Activity Restrictions/Additional Instructions: DIET - You may resume your normal diet if there is no nausea or vomiting. You may want to avoid spicy, greasy, or heavy foods today to minimize gas. - If nausea or vomiting occurs, don't eat or drink anything for one hour. Then start drinking small amounts of clear liquids. Later, add crackers, gradually building up to your usual diet. Notify surgeon for temperature >101 F. ACTIVITY INSTRUCTIONS * Ambulate daily * May climb stairs * No lifting more than 20 lbs for 6 weeks. DRESSING CARE Patient can shower, hot tub, swim. ADDITIONAL DISCHARGE INSTRUCTIONS Apply ice to the incisions as often as tolerated for at least 72 hours, 15 min on, 20 min off. This will help with pain and bruising and swelling. MEDICATIONS * Take ibuprofen and Tylenol as needed for pain,may take both meds together. ANESTHESIA PRECAUTIONS Anesthesia and medications given during surgery remain in your body up to 24 hours. This may slow reaction time and/or decrease coordination. FOR THE NEXT 24 HOURS: - Have a responsible person with you - Avoid any activity that requires you to be alert and coordinated - DO NOT DRIVE a motor vehicle for 24 hours or as long as you are taking opioid pain medication - Do not drink alcoholic beverages - Do not smoke unattended Patient Date Escort Date RN Date Diet: Regular Health Concerns: The risk of recurrent hernia is higher than normal due to the clinical presentation (repaired primarily due to need for bowel resection versus repaired with mesh). The patient vocalizes an understanding of this. Assessment: Patient doing as expected following surgery. Print Language: Gambian Patient Instructions: Surgery Anesthesia After Stand Alone Forms: PCP List Follow-up Care: Alvin Ferreira MD [Provider Admit Priv/Credential] - (follow up appointment on 11/03/24 at 1500.)
== END 2024-10-23 13:40 | disposition home or self-care (01) | DRG 330 ==
LOC: ED 08:49 → SDS 13:36 → MS2 17:35
PROVIDERS: ADMIT Surgery; ATTEND Surgery